=== PATIENT | female | born 1995 | race Caucasian/White ===

== ENCOUNTER 2019-04-15 20:14 | Emergency (ER) | payer OTHER ==
[2019-04-15 20:26] VITALS: BP 108/65; PULSE 66; TEMP 98.1; BMI 28.3
[2019-04-15] MEDS ORDERED: IBUPROFEN 600 MG TABLET (FP) PO ONE ×2 (23:16→23:21)
--- NOTE | 2019-04-16 01:40 | PDOC ---
Documentation entered by Annika Gonsales SCRIBE, acting as scribe for Leigh Cason MD. Leigh Cason MD: This documentation has been prepared by the scribe, Annika Gonsales SCRIBE, under my direction and personally reviewed by me in its entirety. I confirm that the documentation accurately reflects all work, treatment, procedures, and medical decision making performed by me. History of Present Illness - General Chief Complaint: Injury Stated Complaint: R 1ST DIGIT INJURY History Source: Patient Exam Limitations: No Limitations - History of Present Illness Initial Comments: 04/15/19 21:13 The patient is a 23-year-old female, with no past medical history, who presents to the ED with swelling and tenderness to the RT 1st digit after slamming her finger in the car door last night. Patient is now unable to bend the finger and is experiencing a throbbing sensation to the RT 1st and 2nd digits. The patient denies having any other injuries or symptoms. Allergies: NKA Past History - Past Medical History Allergies/Adverse Reactions: Allergies Allergy/AdvReac Type Severity Reaction Status Date / Time No Known Allergies Allergy Verified 10/07/15 13:24 Home Medications: Ambulatory Orders Pnv with Ca,No.71/Iron/FA [Prenaplus Tablet] 1 each PO DAILY 03/10/15 Albuterol Sulfate Inhaler - [Ventolin Hfa Inhaler -] 1 - 2 inh PO QID PRN Ibuprofen [Motrin -] 600 mg PO QID #28 tablet 10/14/15 Asthma: Yes Cancer: No Cardiac Disorders: No COPD: No Diabetes: No HTN: No Seizures: No Thyroid Disease: No - Suicide/Smoking/Psychosocial Hx Smoking History: Unknown if ever smoked Have you smoked in the past 12 months: No Number of Cigarettes Smoked Daily: 0 Information on smoking cessation initiated: No Hx Alcohol Use: No Drug/Substance Use Hx: No Substance Use Type: None Hx Substance Use Treatment: No Review of Systems - Review of Systems Able to Perform ROS?: Yes Comments:: 04/15/19 21:14 GENERAL/CONSTITUTIONAL: No fever or chills. No weakness. HEAD, EYES, EARS, NOSE AND THROAT: No change in vision. No ear pain or discharge. No sore throat. CARDIOVASCULAR: No chest pain or shortness of breath. RESPIRATORY: No cough, wheezing, or hemoptysis. GASTROINTESTINAL: No nausea, vomiting, diarrhea or constipation. GENITOURINARY: No dysuria, frequency, or change in urination. MUSCULOSKELETAL: (+)Swelling and tenderness to RT 1st digit. No joint swelling or pain. No neck or back pain. SKIN: No rash NEUROLOGIC: No headache, vertigo, loss of consciousness, or change in strength/ sensation. ENDOCRINE: No increased thirst. No abnormal weight change. HEMATOLOGIC/LYMPHATIC: No anemia, easy bleeding, or history of blood clots. ALLERGIC/IMMUNOLOGIC: No hives or skin allergy. *Physical Exam - Vital Signs Last Vital Signs Temp Pulse Resp BP Pulse Ox 98.1 F 66 14 108/65 100 04/15/19 20:21 04/15/19 20:21 04/15/19 20:21 04/15/19 20:21 04/15/19 20:21 - Physical Exam Comments: 04/15/19 21:14 GENERAL: Awake, alert, and fully oriented, in no acute distress HEAD: No signs of trauma EYES: PERRLA, EOMI, sclera anicteric, conjunctiva clear ENT: Auricles normal inspection, hearing grossly normal, nares patent, oropharynx clear without exudates. Moist mucosa NECK: Normal ROM, supple, no lymphadenopathy, JVD, or masses LUNGS: Breath sounds equal, clear to auscultation bilaterally. No wheezes, and no crackles HEART: Regular rate and rhythm, normal S1 and S2, no murmurs, rubs or gallops ABDOMEN: Soft, nontender, normoactive bowel sounds. No guarding, no rebound. No masses EXTREMITIES: (+)Diffuse mild edema to the RT thumb, no deformity noted. (+) Diffuse moderate tenderness, subungual hematoma to the proximal half of the nail bed. No other lacerations, abrasions, or skin breakages. No snuff box tenderness/ No other finger tenderness or edema. No clubbing or cyanosis. No cords. NEUROLOGICAL: Cranial nerves II through XII grossly intact. Normal speech SKIN: Warm, Dry, normal turgor. ED Treatment Course - ADDITIONAL ORDERS Additional order review: Laboratory Results 04/15/19 22:20 Urine HCG, Qual Negative - RADIOLOGY Radiology Studies Ordered: Category Date Time Status FINGER(S) RIGHT [RAD] Stat Radiology 04/15/19 22:36 Taken Progress Note - Progress Note Progress Note: As noted above, this otherwise healthy 23-year-old woman presents with right thumb injury: She closed her car door on the distal aspect of the right thumb yesterday. Since then, she has had pain and tenderness in the finger as well as discoloration of the proximal portion of the fingernail. No other injury sustained. The patient is right handed and has had no previous injury of the thumb or right hand. Exam as noted. PGU negative Right thumb x-ray performed: Preliminary interpretation by me-no evidence of fracture or dislocation. Since subungual hematoma is only 50% of the nailbed, and is 24 hours old, no evacuation will be performed. Clinical presentation most consistent with contusion of the thumb. In order to protect the thumb from further trauma, gauze placed on the thumb and splint attached. Patient should keep the protective dressing in place for the next few days. If she has persistent pain or swelling in the finger, she should follow-up with orthopedics (Dr.Ilan villagomez). Referral information provided for the patient. Patient has been taking Tylenol for the pain with limited relief of the symptoms. She was given a dose of Motrin 600 mg now . She can alternate acetaminophen with ibuprofen or naproxen as needed *DC/Admit/Observation/Transfer Diagnosis at time of Disposition: Subungual hematoma Contusion of right thumb Qualifiers: Encounter type: initial encounter Damage to nail status: with damage Qualified Code(s): S60.111A - Contusion of right thumb with damage to nail, initial encounter - Discharge Dispostion Disposition: HOME Condition at time of disposition: Stable - Referrals Referrals: Bruno Alejandre MD [Staff Physician] - 1 week - Patient Instructions Printed Discharge Instructions: DI for Subungual Hematoma Additional Instructions: Elevate right thumb to heart level or above as much as possible over the next few days Can use gauze/splint as needed to protect thumb Tylenol/Motrin/Aleve as needed for pain If you have continued pain/swelling of thumb, follow-up with orthopedic service (Dr. Hill villagomez) - Post Discharge Activity
== END 2019-04-15 23:23 | disposition home or self-care (01) ==
LOC: FER 20:14
PROC: 2W3GX1Z Immobilization of Right Thumb using Splint (ICD-10-PCS; principal; 2019-04-15)
DX: S60.111A Contusion of right thumb with damage to nail, initial encounter (principal); W20.8XXA Other cause of strike by thrown, projected or falling object, initial encounter; Y93.89 Activity, other specified; Y92.89 Other specified places as the place of occurrence of the external cause
CPT/HCPCS: 29130; 73140-TC-RT-FY; 84703; 99282-25

== ENCOUNTER 2019-09-13 10:35 | Emergency (ER) | payer OTHER ==
[2019-09-13 10:51] VITALS: BP 110/71; PULSE 95; TEMP 98.7; BMI 27.3
--- NOTE | 2019-09-13 10:53 | PDOC ---
History of Present Illness - General Chief Complaint: Sore Throat Stated Complaint: SORETHROAT Time Seen by Provider: 09/13/19 10:38 History Source: Patient Exam Limitations: No Limitations - History of Present Illness Initial Comments: 09/13/19 10:47 23 y/o female with flu like symptoms and discharge from right eye. Daughter and with similar symptoms. No traveling. Fever, chills and body aches that started last . Denies N/V/d/C. OTC medications noted working. Is this a multiple visit Asthma Patient?: No Past History - Past Medical History Allergies/Adverse Reactions: Allergies Allergy/AdvReac Type Severity Reaction Status Date / Time No Known Allergies Allergy Verified 09/13/19 10:36 Home Medications: Ambulatory Orders Oseltamivir Phosphate [Tamiflu] 75 mg PO BID #10 capsule 09/13/19 Tobramycin/Dexamethasone [Tobradex Eye Drops] 1 drop OP QID #5 drops.susp Asthma: Yes Cancer: No Cardiac Disorders: No COPD: No Diabetes: No HTN: No Seizures: No Thyroid Disease: No Other medical history: DENIES - Psycho Social/Smoking Cessation Hx Smoking History: Never smoked Have you smoked in the past 12 months: No Number of Cigarettes Smoked Daily: 0 Information on smoking cessation initiated: No Hx Alcohol Use: No Drug/Substance Use Hx: No Substance Use Type: None Hx Substance Use Treatment: No Review of Systems - Review of Systems Able to Perform ROS?: Yes Is the patient limited Moldovan proficient: No Constitutional: Yes: Chills, Fever HEENTM: Yes: Throat Pain Respiratory: No: Cough, Shortness of Breath Cardiac (ROS): No: Chest Pain ABD/GI: No: Nausea (d), Vomiting All Other Systems: Reviewed and Negative *Physical Exam - Vital Signs Last Vital Signs Temp Pulse Resp BP Pulse Ox 98.7 F 95 H 20 110/71 100 09/13/19 10:36 09/13/19 10:36 09/13/19 10:36 09/13/19 10:36 09/13/19 10:36 - Physical Exam General Appearance: Yes: Nourished, Appropriately Dressed. No: Apparent Distress HEENT: positive: EOMI, JAVID (right injected no discharge noted) Neck: positive: Trachea midline, Normal Thyroid, Supple. negative: Tender, Rigid Respiratory/Chest: positive: Lungs Clear, Normal Breath Sounds. negative: Chest Tender, Respiratory Distress Cardiovascular: positive: Regular Rhythm, Regular Rate, S1, S2. negative: Edema , JVD, Murmur Vascular Pulses: Femoral (R): 4+, Femoral (L): 4+, Carotid (R): 4+, Carotid (L) : 4+, Dorsalis-Pedis (R): 4+, Doralis-Pedis (L): 4+ Gastrointestinal/Abdominal: positive: Normal Bowel Sounds, Flat, Soft. negative : Tender, Organomegaly Lymphatic: negative: Adenopathy, Tenderness, Other Musculoskeletal: positive: Normal Inspection. negative: CVA Tenderness Extremity: positive: Normal Capillary Refill, Normal Inspection, Normal Range of Motion Integumentary: positive: Normal Color, Dry, Warm Neurologic: positive: corrections caseworker II-XII NML intact, Fully Oriented, Alert, Normal Mood/ Affect, Normal Response, Motor Strength 12/14 ED Treatment Course - ADDITIONAL ORDERS Additional order review: 09/13/19 10:49 Patient appears to have flu and conjunctivitis Will treat with Tamiflu and Tobradex If worsen return to ER Pt is in agreement with plan Discharge - Discharge Information Problems reviewed: Yes Clinical Impression/Diagnosis: Influenza Conjunctivitis Qualifiers: Conjunctivitis type: acute Acute conjunctivitis type: unspecified Laterality: right Qualified Code(s): H10.31 - Unspecified acute conjunctivitis, right eye Condition: Good Disposition: HOME - Admission No - Follow up/Referral - Patient Discharge Instructions Patient Printed Discharge Instructions: DI for Conjunctivitis, DI for Influenza -- Adult Additional Instructions: Fluids, rest, Motrin Tamilfu 75 mg 2x/day for 5 days Tobradex eye drops 1 drop 4x/day for 5 days to right eye If worsen return to ER - Post Discharge Activity
== END 2019-09-13 11:11 | disposition home or self-care (01) ==
LOC: FER 10:35
DX: J11.1 Influenza due to unidentified influenza virus with other respiratory manifestations (principal); H10.31 Unspecified acute conjunctivitis, right eye; J45.909 Unspecified asthma, uncomplicated
CPT/HCPCS: 99281-25